=== PATIENT | female | born 1995 | race African-American/Black ===

== ENCOUNTER 2020-06-18 16:36 | Emergency (ER) | payer SELFPAY ==
[~2020-06-18] VITALS: Ht 160 cm; Wt 81.0 kg
[2020-06-18 17:04] VITALS: BP 116/59
[2020-06-18] MEDS ORDERED: DIPH,PERTUSS(ACELL),TET VAC/PF 0.5 ML SYRINGE. VAX IM ONE (18:00)
[2020-06-18] MEDS ORDERED: CEPH-264 PO (18:21)
--- NOTE | 2020-06-18 18:22 | PHYS DOC ---
Past Medical History Past Medical History: No Pertinent History (MELISSA CUNNINGHAM APRN) Past Surgical History: No Surgical History (MELISSA CUNNINGHAM APRN) Smoking Status: Never Smoker Alcohol Use: None (MELISSA CUNNINGHAM APRN) General Adult EDM: Chief Complaint: FINGER INJURY HPI: HPI: Patient is a 24 year old AA female who presents emergency department with complaints of a laceration between the DIP and the PIP of her left middle finger. Patient states that she accidentally cut her finger last night at approximately 10 PM. She denies any numbness, tingling, or decreased range of motion of the affected finger. She states that her last tetanus shot was greater than 5 years ago. She states that the finger keeps bleeding even a bandage has been applied. She currently rates her pain 8 out of 10 on the pain scale, she denies any alleviating factors, the pain increases if the area is touched or she moves her finger. (MELISSA CUNNINGHAM APRN) Review of Systems: Review of Systems: Constitutional: Denies fever or chills. [] Eyes: Denies change in visual acuity. [] HENT: Denies nasal congestion or sore throat. [] Respiratory: Denies cough or shortness of breath. [] Cardiovascular: Denies chest pain or edema. [] GI: Denies abdominal pain, nausea, vomiting, bloody stools or diarrhea. [] : Denies dysuria. [] Musculoskeletal: Denies back pain or joint pain. [] Integument: Denies rash. [] Neurologic: Denies headache, focal weakness or sensory changes. [] Endocrine: Denies polyuria or polydipsia. [] Lymphatic: Denies swollen glands. [] Psychiatric: Denies depression or anxiety. [] (MELISSA CUNNINGHAM APRN) Heart Score: Risk Factors: Risk Factors: DM, Current or recent (<one month) smoker, HTN, HLP, family history of CAD, obesity. Risk Scores: Score 0 - 3: 2.5% MACE over next 6 weeks - Discharge Home Score 4 - 6: 20.3% MACE over next 6 weeks - Admit for Clinical Observation Score 7 - 10: 72.7% MACE over next 6 weeks - Early Invasive Strategies (MELISSA CUNNINGHAM APRN) Current Medications: Current Medications Medications (Trade) Dose Ordered Sig/Osmin Start Time Stop Time Status Last Admin Dose Admin Diphtheria/ Tetanus/Acell Pertussis (ADACEL TDap SYRINGE) 0.5 ml ONCE ONCE 06/18/20 18:00 06/18/20 18:01 DC 06/18/20 18:04 0.5 ML (MELISSA CUNNINGHAM APRN) Allergies: Allergies: Allergies Coded Allergies Type Severity Reaction Last Updated Verified No Known Drug Allergies 06/18/20 No (MELISSA CUNNINGHAM APRN) Physical Exam: PE: Constitutional: Well developed, well nourished, no acute distress, non-toxic appearance. [] HENT: Normocephalic, atraumatic, bilateral external ears normal, nose normal. [] Eyes: PERRLA, EOMI, conjunctiva normal, no discharge. [] Neck: Normal range of motion, no stridor. [] Cardiovascular:Heart rate regular rhythm Lungs & Thorax: Respirations even and unlabored, no retractions, no respiratory distress Skin: Warm, dry, no erythema, no rash; 1 cm laceration noted to the dorsal aspect of the left third digit between the DIP and the PIP, no active bleeding, no visible foreign body. [] Extremities: Third digit of left hand: No obvious deformity, no crepitus, no cyanosis, ROM intact, no edema. [] Neurologic: Alert and oriented X 3, no focal deficits noted. [] Psychologic: Affect normal, judgement normal, mood normal. [] (MELISSA CUNNINGHAM APRN) Current Patient Data: Vital Signs: Vital Signs Date Time Temp Pulse Resp B/P (MAP) Pulse Ox O2 Delivery O2 Flow Rate FiO2 06/18/20 17:04 98.1 94 18 116/59 (78) 100 Room Air 98.1 (MELISSA CUNNINGHAM APRN) EKG: EKG: [] (MELISSA CUNNINGHAM APRN) Radiology/Procedures: Radiology/Procedures: [] (MELISSA CUNNINGHAM APRN) Course & Med Decision Making: Course & Med Decision Making Pertinent Labs and Imaging studies reviewed. (See chart for details) 24-year-old female presents emergency department with complaints of a laceration to her left third digit. There had been greater than 12 hours since the initial injury, due to the increased risk of infection sutures were not used to close wound. The wound was cleansed by nursing staff, Steri-Strips were applied to help to close the site. Patient was placed in aluminum finger splint to help promote healing. Prescription written for Keflex. Encouraged patient to follow-up with a primary care doctor in 1 to 2 days for wound recheck, may take Tylenol or ibuprofen as needed for pain. Return to the ER symptoms worsen or fever develops. Patient verbalized an understanding of home care, medications, follow-up, and return to ED instructions and was in agreement with the plan of care. [] (MELISSA CUNNINGHAM APRN) Course & Med Decision Making I have reviewed the PA/UNDERGROUND ROOF BOLTER's note and Plan of Care. I was available for consultation as needed during the patient's visit in the emergency department. I agree with the clinical impression, plans and disposition. (RASHAUN STACY MD) Dragon Disclaimer: Arpan Disclaimer: This electronic medical record was generated, in whole or in part, using a voice recognition dictation system. (MELISSA CUNNINGHAM APRN) Departure Departure Impression: Primary Impression: Laceration of left middle finger w/o foreign body w/o damage to nail Qualified Codes: S61.213A - Laceration without foreign body of left middle finger without damage to nail, initial encounter Additional Impression: Need for Tdap vaccination Disposition: 01 HOME, SELF-CARE Condition: STABLE Referrals: NO PCP (PCP) Patient Instructions: Laceration, Old, Not Sutured Additional Instructions: Fill the prescription and use it as directed. You can take Tylenol or ibuprofen as needed for pain. Keep the affected area clean. Wear the finger splint until the site has closed and healed. Follow-up with your primary care doctor for wound recheck in 1 to 2 days, return to the ER symptoms worsen or fever develops. [facility] [address] [place] [address] [facility] [address] [place] [address] [place] [address] [facility] [address] [address] [facility] [address] [place] [address] [facility] [address] [place] [address] [facility] [place] [address] [place] [address] [facility] [address] [place] [address] [facility] [address] [place] [address] [facility] [address] [place] [address] Scripts Cephalexin (KEFLEX) 500 Mg Capsule 500 MG PO TID for 7 Days, #21 CAP 0 Refills Prov: MELISSA CUNNINGHAM APRN 06/18/20 MELISSA CUNNINGHAM APRN Jun 18, 2020 18:22 RASHAUN STACY MD Jun 18, 2020 19:44
== END 2020-06-18 18:28 | disposition home or self-care (01) ==
LOC: ER 16:36
DX: S61.213A Laceration without foreign body of left middle finger without damage to nail, initial encounter (principal); W26.8XXA Contact with other sharp object(s), not elsewhere classified, initial encounter; Y93.89 Activity, other specified; Y92.89 Other specified places as the place of occurrence of the external cause; Y99.8 Other external cause status
CPT/HCPCS: 29130; 90471; 90715; 99283

== ENCOUNTER 2020-09-10 18:40 | Emergency (ER) | payer SELFPAY ==
[~2020-09-10] VITALS: Ht 160 cm; Wt 80.9 kg
[~2020-09-10 18:40] MED LIST: CEPH-264 PO
--- NOTE | 2020-09-10 19:58 | PHYS DOC ---
Past Medical History Past Medical History: No Pertinent History (KEIKO BURRELL WIRE STRAIGHTENER) Past Surgical History: No Surgical History ([facility] LINAR[facility] APRN) Smoking Status: Former Smoker Alcohol Use: None ([facility]) General Adult EDM: Chief Complaint: COUGH HPI: HPI: Patient is a 24 year old female who presents with 3 days of nasal congestion, cough, cannot taste or smell and a low-grade fever that has not gotten over 100. She states she been taking Robitussin and Tylenol at home. Patient denies shortness of breath, chest pain, dizziness, headache, vision changes, abdominal pain, nausea, vomiting, diarrhea, back pain, numbness or tingling, focal weakness. Denies past medical history. ([facility]ATION[facility] LINARES WIRE STRAIGHTENER) Review of Systems: Review of Systems: Constitutional: + fever or chills. [] Eyes: Denies change in visual acuity. [] HENT: + nasal congestion or denies sore throat. [] Respiratory: + cough or denies shortness of breath. [] Cardiovascular: Denies chest pain or edema. [] GI: Denies abdominal pain, nausea, vomiting, bloody stools or diarrhea. [] : Denies dysuria. [] Musculoskeletal: Denies back pain or joint pain. [] Integument: Denies rash. [] Neurologic: Denies headache, focal weakness or sensory changes. [] Endocrine: Denies polyuria or polydipsia. [] Lymphatic: Denies swollen glands. [] Psychiatric: Denies depression or anxiety. [] ([facility] LINARES WIRE STRAIGHTENER) Heart Score: Risk Factors: Risk Factors: DM, Current or recent (<one month) smoker, HTN, HLP, family history of CAD, obesity. Risk Scores: Score 0 - 3: 2.5% MACE over next 6 weeks - Discharge Home Score 4 - 6: 20.3% MACE over next 6 weeks - Admit for Clinical Observation Score 7 - 10: 72.7% MACE over next 6 weeks - Early Invasive Strategies ([facility] LINARES WIRE STRAIGHTENER) Allergies: Allergies: Allergies Coded Allergies Type Severity Reaction Last Updated Verified No Known Drug Allergies 06/18/20 No ([facility] LINARES WIRE STRAIGHTENER) Physical Exam: PE: Constitutional: Well developed, well nourished, no acute distress, non-toxic appearance. [] HENT: Normocephalic, atraumatic, bilateral external ears normal, oropharynx moist, no oral exudates, nose normal. [] Eyes: PERRLA, EOMI, conjunctiva normal, no discharge. [] Neck: Normal range of motion, no tenderness, supple, no stridor. [] Cardiovascular:Heart rate regular rhythm, no murmur [] Lungs & Thorax: Bilateral breath sounds clear to auscultation [] Abdomen: Bowel sounds normal, soft, no tenderness, no masses, no pulsatile masses. [] Skin: Warm, dry, no erythema, no rash. [] Back: No tenderness, no CVA tenderness. [] Extremities: No tenderness, no cyanosis, no clubbing, ROM intact, no edema. [] Neurologic: Alert and oriented X 3, normal motor function, normal sensory function, no focal deficits noted. [] Psychologic: Affect normal, judgement normal, mood normal. Normal physical exam [] (KEIKO BURRELL APRN) Current Patient Data: Vital Signs: Vital Signs Date Time Temp Pulse Resp B/P (MAP) Pulse Ox O2 Delivery O2 Flow Rate FiO2 09/10/20 19:16 99.2 75 18 117/87 (97) 98 Room Air 99.2 (KEIKO BURRELL APRN) EKG: EKG: [] (KEIKO BURRELL APRN) Radiology/Procedures: Radiology/Procedures: [] Impression: [facility] [address] [place], [place] [id number] IMAGING REPORT Signed PATIENT: ROSALINE RICHARDS: [id number] : 1995 LOCATION: ER AGE: 24 SEX: F EXAM STATUS: REG ER ORD. PHYSICIAN: KEIKO BURRELL APRN REASON: COUGH, SOA, FEVER PROCEDURE: PORTABLE CHEST 1V Exam performed: One view chest. Indication: Reason: COUGH, SOA, FEVER / Spl. Instructions: / History: Date of Service: 09/10/2020 7:50 PM Comparison: None available. Single AP upright portable view chest findings: Cardiomediastinal silhouette is within limits of normal. No acute infiltrates, effusion or pneumothorax is detected. The bony structures are normal. Impression: No acute cardiopulmonary process is detected. Electronically signed by: Nely Freed MD (09/10/2020 8:22 PM) [facility] DICTATED and SIGNED BY: NELY FREED MD DATE: 09/10/[id number] 0 (KEIKO BURRELL APRN) Course & Med Decision Making: Course & Med Decision Making Pertinent Labs and Imaging studies reviewed. (See chart for details) COVID-19 CRITERIA: The patient was evaluated during the global COVID-19 pandemic, and that diagnosis was suspected/considered upon their initial presentation. Their evaluation, treatment and testing was consistent with current guidelines for patients who present with complaints or symptoms that may be related to COVID-19. See HPI. Lungs are clear to auscultation in all lobes. Speaks in full clear sentences. Skin pink warm and dry. Ambulatory with a steady gait. Vital signs within normal limits. Chest x-ray shows no acute findings. Patient will be sent home with azithromycin, next Methasone and ProAir inhaler. [] (KEIKO BURRELL APRN) Course & Med Decision Making I have reviewed the PA/COAL EQUIPMENT OPERATOR's note and Plan of Care. I was available for consultation as needed during the patient's visit in the emergency department. I agree with the clinical impression, plans and disposition. (RASHAUN STACY MD) Dragon Disclaimer: Dragon Disclaimer: This electronic medical record was generated, in whole or in part, using a voice recognition dictation system. (KEIKO BURRELL APRN) COVID-19 Patient Risks: Age 65 or older: No Sign of co-morbidity: No Exp to person + for COVID: No Exp to PUI: No Travel from affected area: No Lower respiratory symptoms: Yes Fever: Yes Other: Yes (loss of taste and smell) (KEIKO BURRELL APRN) PPE Use: Full PPE with N95 mask or PAPR: Yes (KEIKO BURRELL APRN) Departure Departure Impression: Primary Impression: Person under investigation for COVID-19 Additional Impressions: Cough Loss of taste Loss of smell Nasal congestion Disposition: 01 DC HOME SELF CARE/HOMELESS Condition: STABLE Referrals: NO PCP (PCP) Patient Instructions: Cough, Adult Additional Instructions: FOLLOW UP WITH PRIMARY CARE PROVIDER IF NEEDED. RETURN TO THE ED IF YOU HAVE SEVERE SOA OR TEST PAIN. DRINK PLENTY OF FLUIDS. TAKE MEDICATIONS ASS PRESCRIBED. You have been tested for or diagnosed with COVID-19. It is an infection caused by a new type of coronavirus. COVID-19 will cause cold-like or mild flu symptoms in most. It can cause more severe symptoms like problems breathing in some. There is no treatment for COVID-19. The body will clear the infection over time. Self-care will help to ease discomfort. Steps to Take: Self-Care Rest as needed. Healthy habits may help you feel better. Steps include: Choose healthy foods including fruits and vegetables. Drink water throughout the day. Get plenty of sleep each night. If you smoke, try to quit. It may ease breathing. Avoid alcohol. Keep Others Healthy The virus can spread to others. Droplets are released every time you sneeze or cough. The droplets can get into the mouth, nose, or eyes of people near you and lead to infection. To lower the chances of spreading COVID-19 to others: Stay at home until your doctor has said it is safe to leave. If you tested positive this will mean staying isolated until both of the following are true: At least 7 days have passed since the start of illness. You are free of fever for at least 72 hours without the use of medicine. During this time: - Avoid public areas, events, or transportation. Do not return to work or school until your doctor has said it is safe to do so. - Call ahead if you need to go to a medical center. Let them know you may have COVID-19. It will help them guide you where to go. They may also ask you to wear a facemask when you come to the office. - If you call for emergency medical services, let them know you may have COVID- 19. While at home: - Try to avoid close contact with others. Stay about 6 feet away. - If possible, spend most of your time in a separate room from others. - Use a face mask if you will be in close contact with others such as sharing a room or vehicle. - Have someone wipe down common surfaces in the home. Use household language and literature division chair every day on areas like doorknobs, counters, or sinks. - Cough or sneeze into a tissue. Throw the tissue away right after use. If a tissue is not available, cough or sneeze into your elbow. - Wash your hands often. Wash them after sneezing or coughing. Use soap and water and wash for at least 20 seconds. Alcohol based hand tack cleaner can be used if soap and water is not available. - Do not prepare food for others. Avoid sharing personal items like forks, spoons, or toothbrushes. - Avoid close contact with pets while you are sick. There is no evidence of the virus passing to pets. This is a safety step until more is known about this virus. Isolation can be frustrating. Social interaction can help. Keep in touch with friends and family through phone and tech options. You can still interact with others in your home, just keep a safe distance of about 6 feet. Follow-up: Your doctors office will check in with you to see if there are any changes in your health. You may be asked to keep track of symptoms to share with them. They will also let you know when you are clear to be in public again. Problems to Look Out For: Contact your doctor if your recovery is not going as you expect. Get emergency care if you have problems such as: - Trouble breathing - Nonstop chest pain or pressure - Changes in awareness, confusion, or problems waking - Lips or face have bluish color - Worsening of symptoms If you think you have an emergency, call for emergency medical services right away. [facility] Scripts Benzonatate (TESSALON PERLE) 100 Mg Capsule 1 CAP PO TID, #30 CAP Prov: KEIKO BURRELL APRN 09/10/20 Albuterol Sulfate (PROAIR HFA INHALER) 8.5 Gm Hfa.aer.ad 1 PUFF INH PRN Q6HRS PRN for SHORTNESS OF BREATH, #1 INHALER 0 Refills Prov: KEIKO BURRELL APRN 09/10/20 Azithromycin (AZITHROMYCIN TABLET) 250 Mg Tablet 1 PKG PO UD for 5 Days, #6 TAB 0 Refills 2 the first day followed by 1 for days 2-5 Prov: KEIKO BURRELL APRN 09/10/20 Methylprednisolone (MEDROL) 4 Mg Tab.ds.pk 1 PKG PO UD, #1 PKG Prov: KEIKO BURRELL APRN 09/10/20 KEIKO BURRELL APRN Sep 10, 2020 19:58 RASHAUN STACY MD Sep 10, 2020 21:16
--- NOTE | 2020-09-10 20:25 | RAD ---
Exam performed: One view chest. Indication: Reason: COUGH, SOA, FEVER / Spl. Instructions: / History: Date of Service: 09/10/2020 7:50 PM Comparison: None available. Single AP upright portable view chest findings: Cardiomediastinal silhouette is within limits of normal. No acute infiltrates, effusion or pneumotho rax is detected. The bony structures are normal. Impression: No acute cardiopulmonary process is detected. Electronically signed by: Nely Freed MD (09/10/2020 8:22 PM) [facility]
[2020-09-10 20:30] VITALS: BP 119/79
[2020-09-10] MEDS ORDERED: BENZ100C PO (20:41)
[2020-09-10] MEDS ORDERED: AZIT250T6 PO (20:41)
[2020-09-10] MEDS ORDERED: METH4TAB2 PO (20:41)
[2020-09-10] MEDS ORDERED: ALBU2.5V8 INH (20:41)
--- NOTE | 2020-09-12 10:03 | NUR ---
IP: Informed pt of positive COVID test and the need to quarantine for 14 days. Pt verbalized understanding.
== END 2020-09-10 20:50 | disposition home or self-care (01) ==
LOC: ER 18:40
DX: U07.1 COVID-19 (principal); R09.81 Nasal congestion; R50.9 Fever, unspecified; R05 Cough; R43.9 Unspecified disturbances of smell and taste; Z87.891 Personal history of nicotine dependence
CPT/HCPCS: 71045; 99284; C9803; U0003